=== PATIENT | female | born 1990 | race American Indian/Alaskan Native ===

== ENCOUNTER 2016-10-05 02:08 | Emergency (ER) | payer OTHER, MEDICAID ==
[2016-10-05 02:12] VITALS: BMI 20.8
[2016-10-05 02:21] VITALS: RESP 18; TEMP 98.6
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
[2016-10-05 06:51] VITALS: BP 113/76; PULSE 85; O2SAT 99
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
== END 2016-10-05 06:52 | disposition home or self-care (01) ==
LOC: MERGE 02:08 → ED 02:08
DX: S42.032A Displaced fracture of lateral end of left clavicle, initial encounter for closed fracture (principal); Y08.89XA Assault by other specified means, initial encounter; Y93.89 Activity, other specified; Y92.89 Other specified places as the place of occurrence of the external cause
CPT/HCPCS: 70450; 73030; 73660; 96372; 99285; J1885

== ENCOUNTER 2017-08-15 14:00 | Emergency (ER) | payer MEDICAID, OTHER ==
[2017-08-15 14:03] VITALS: BP 100/60; PULSE 72; RESP 18; TEMP 98.2; O2SAT 100; BMI 25.4
[2017-08-15] MEDS ORDERED: TDAP Vaccine 0.5 mL Syr IM ONE (14:32)
--- NOTE | 2017-08-15 14:37 | ED PDOC ---
Arrival/HPI - General Chief Complaint: Abnormal Skin Integrity Time Seen by Provider: 08/15/17 14:30 Historian: Patient - History of Present Illness Narrative History of Present Illness (Text): 08/15/17 14:33 26 year old female, with no significant past medical history, presents to the emergency department complaining of right index finger laceration at 1:30pm. Patient states she was using a butcher meat when she accidentally cut her finger. Patient denies tetanus shot in the past. Patient denies any fever, chills, vomiting, nausea, diarrhea, abdominal pain, shortness of breath, chest pain, or any other complaints. Time/Duration: 1 hour Symptom Onset: Sudden Symptom Course: Unchanged Activities at Onset: Light Context: Home Past Medical History - Provider Review Nursing Documentation Reviewed: Yes - Infectious Disease Hx of Infectious Diseases: None - Psychiatric Hx Substance Use: No Family/Social History - Physician Review Nursing Documentation Reviewed: Yes Family/Social History: No Known Family HX Smoking Status: Light Smoker < 10 Cigarettes Daily Hx Alcohol Use: No Hx Substance Use: No Allergies/Home Meds Allergies/Adverse Reactions: Allergies peanut Allergy (Verified 10/05/16 02:32) ANAPHYLAXIS laffy taffy peanuts chocolate Allergy (Severe, Uncoded 08/02/15 13:47) Review of Systems - Physician Review All systems were reviewed & negative as marked: Yes - Review of Systems Constitutional: absent: Fevers Respiratory: absent: SOB Cardiovascular: absent: Chest Pain Gastrointestinal: absent: Abdominal Pain, Diarrhea, Nausea, Vomiting Skin: Laceration (right index finger) Physical Exam - Physical Exam Narrative Physical Exam (Text): 08/15/17 14:38 Gen: VS reviewed, alert, well developed, well nourished, nontoxic, mild distress ENT: normal pharynx Eye: EOMI, PERRL Neck: no JVD, supple, no adenopathy CV: regular rate, regular rhythm, no rubs,no murmur, no gallops, S1, S2, pulses equal and strong Pulm: no distress, clear to auscultation, no wheeze, no rhonchi, breath sounds equal, no rales Abd: soft, nontender, no guarding, no rebound, no rigidity, normal bowel sounds Ext: no edema Skin: Avulsion of distal tip of finger. Does not involve nail bed, no exposed bone, very minimal bleeding. Psych: responds appropriately to questions, normal affect Neuro: oriented x3, CN2-12 intact grossly, motor intact, sensation intact Vital Signs Reviewed: Yes Vital Signs Temp Pulse Resp BP Pulse Ox 08/15/17 14:02 98.2 F 72 18 100/60 100 Temperature: Afebrile Blood Pressure: Normal Pulse: Regular Respiratory Rate: Normal Appearance: Positive for: Well-Appearing, Non-Toxic, Comfortable Pain Distress: Mild Mental Status: Positive for: Alert and Oriented X 3 Medical Decision Making ED Course and Treatment: 08/15/17 14:40 Impression: 26 year old female presents to the emergency department for laceration on her right index finger. Plan: --Motrin --Urinalysis --TDAP vaccine -- Reassess and disposition Prior Visits: Notes and results from previous visits were reviewed. Progress Notes: 08/15/17 14:44 08/15/17 14:55 patient seen for distal finger pulp avulsion, no exposed bone, tetanus updated, no significant bleeding during ED course, empiric antibiotics, stable for dc - Medication Orders Current Medication Orders: Discontinued Medications Ibuprofen (Motrin Tab) 800 mg PO STAT STA Stop: 08/15/17 14:34 Last Admin: 08/15/17 15:13 Dose: 800 mg Tetanus/Reduced Diphtheria/Acell Pertussis (Boostrix Vaccine Inj) 0.5 ml IM .ONCE ONE Stop: 08/15/17 14:33 Last Admin: 08/15/17 15:13 Dose: 0.5 ml Immunization Registry Document 08/15/17 15:13 GMD (Rec: 08/15/17 15:13 GMD [facility] [id number]) Immunization Registry Consent Date 08/15/17 - Scribe Statement The provider has reviewed the documentation as recorded by the Scribe Leeroy Paz, training with [place] All medical record entries made by the Scribe were at my direction and personally dictated by me. I have reviewed the chart and agree that the record accurately reflects my personal performance of the history, physical exam, medical decision making, and the department course for this patient. I have also personally directed, reviewed, and agree with the discharge instructions and disposition. Disposition/Present on Arrival - Present on Arrival Any Indicators Present on Arrival: No History of DVT/PE: No History of Uncontrolled Diabetes: No Urinary Catheter: No History of Decub. Ulcer: No History Surgical Site Infection Following: None - Disposition Have Diagnosis and Disposition been Completed?: Yes Diagnosis: Fingertip avulsion Disposition: HOME/ ROUTINE Disposition Time: 19:17 Condition: GOOD Discharge Instructions (ExitCare): Amputation of the Finger or Fingertip (DC) Print Language: ARMENIAN Additional Instructions: keep the dressing on for 24 hours to prevent acute bleeding. if bleeding occurs , place a gauze with direct pressure to stop the bleeding. take the antibiotics to prevent infection. Prescriptions: Cephalexin [Keflex] 500 mg PO QID 5 Days #20 capsule Cephalexin [cephalexin] 500 mg PO QID 5 Days cap Ibuprofen [Motrin Tab] 800 mg PO TID 14 Days #52 tab Referrals: Babak Chilel MD [Primary Care Provider] - Follow up with primary Forms: [facility] (Slovak), WORK NOTE
== END 2017-08-15 15:34 | disposition home or self-care (01) ==
LOC: ED 14:00
DX: S61.300A Unspecified open wound of right index finger with damage to nail, initial encounter (principal); W29.8XXA Contact with other powered hand tools and household machinery, initial encounter; Z23 Encounter for immunization; F17.210 Nicotine dependence, cigarettes, uncomplicated

== ENCOUNTER 2017-12-19 14:13 | Emergency (ER) | payer OTHER ==
[2017-12-19 14:13] VITALS: BMI 25.4
[2017-12-19 14:31] VITALS: TEMP 98.2
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
--- NOTE | 2017-12-19 14:55 | RAD ---
Date of service: 12/19/2017 PROCEDURE: Radiographs of the Left Shoulder HISTORY: pain COMPARISON: No prior. FINDINGS: BONES: There is an old fracture deformity of the distal clavicle. No acute fracture JOINTS: Normal. Glenohumeral and acromioclavicular joints preserved. No osteoarthritis. SOFT TISSUES: Normal. OTHER FINDINGS: None. IMPRESSION: There is an old fracture deformity of the distal clavicle. No acute fracture
[2017-12-19 15:25] VITALS: BP 117/68; PULSE 65; RESP 16; O2SAT 99
== END 2017-12-19 15:05 | disposition home or self-care (01) ==
LOC: ED 14:13
DX: S46.912A Strain of unspecified muscle, fascia and tendon at shoulder and upper arm level, left arm, initial encounter (principal); X50.0XXA Overexertion from strenuous movement or load, initial encounter; Y92.89 Other specified places as the place of occurrence of the external cause; Y99.0 Civilian activity done for income or pay